=== PATIENT | female | born 1940 | race Caucasian/White ===

== ENCOUNTER 2018-11-15 05:47 | Emergency (ER) | payer OTHER ==
[~2018-11-15] VITALS: Ht 167.6 cm; Wt 83.9 kg
[~2018-11-15 05:47] MED LIST: ACYC800 PO; ASPI81EC PO; Antivert25 MG PO; BENAML10/5; BENAML20/5 PO; BENZOPRIL; CEPH500 PO; CIPR500 PO; CLOP75 PO; Cephalexin500 MG PO; DIGO.25 PO; EZET10 PO; HYDACE5 PO; HYDR1TAB94 PO; ISOMON30 PO; MECL25 PO; METO25ER PO; METO50 PO; METOPROLOL SUCCINATE; Macrobid 100 M100 MG PO; Norco 5-325 Ta1 EACH PO; ONDA4 PO; ONDA4ODT MM; OXYACE5T PO; PRAHYD1AE TOP; PROM25 PO; RXONDA4ODT MM; SERT100 PO; SERT50 PO; TAMS.4ER PO; Valium5 MG PO; WARF5 PO; WARF6 PO; Zofran8 MG PO; [UNRECOGNIZED DRUG - OTHER]; [UNRECOGNIZED DRUG - REMARK]; [UNRECOGNIZED DRUG - REMARK]
[2018-11-15 06:15] LABS: BASOPHILS ABSOLUTE AUTO 0.02 K/mm3 (0.00-0.23); BASOPHILS PERCENT AUTO 0 % (0-2); EOSINOPHILS ABSOLUTE AUTO 0.01 K/mm3 (0.00-0.68); EOSINOPHILS PERCENT AUTO 0 % (0-6); Hemoglobin 14.1 g/dL (11.5-16.0); IMMATURE GRAN ABSOLUTE AUTO 0.06 K/mm3 (0.00-0.10); IMMATURE GRAN PERCENT AUTO 1 % (0-1); LYMPHOCYTES ABSOLUTE AUTO 0.78 K/mm3 (0.84-5.20); LYMPHOCYTES PERCENT AUTO 8 % (21-46); MONOCYTES ABSOLUTE AUTO 0.51 K/mm3 (0.16-1.47); MONOCYTES PERCENT AUTO 5 % (4-13); Mean Corpuscular HGB 30.1 pg (26.0-34.0); Mean Corpuscular HGB Conc 33.6 g/dL (31.5-36.5); Mean Corpuscular Volume 90 fL (80-100); Mean Platelet Volume 9.5 fL (9.1-12.4); NEUTROPHILS ABSOLUTE AUTO 8.34 K/mm3 (1.96-9.15); NEUTROPHILS PERCENT AUTO 86 % (41-73); Platelet Count 219 K/mm3 (150-400); RDW Coefficient Variation 13.7 % (11.7-14.2); RDW Standard Deviation 44.1 fL (35.1-46.3); Red Blood Cell Count 4.69 M/mm3 (3.80-5.20); White Blood Cell Count 9.72 K/mm3 (4.00-11.30)
[2018-11-15 06:30] LABS: International Normalized Ratio 2.51; Prothrombin Time Results 24.5 Sec (9.7-11.5)
[2018-11-15 06:39] LABS: Alanine Aminotransfer (ALT/SGP 18 U/L (12-78); Albumin, Blood 3.4 g/dL (3.4-5.0); Albumin/Globulin Ratio 0.8 (0.8-1.8); Alk Phos 81 U/L (50-136); Anion Gap 8 mmol/L (6-16); Aspartate Aminotrans (AST/SGOT 16 U/L (12-37); Bilirubin, Total 0.5 mg/dL (0.1-1.0); Blood Urea Nitrogen 17 mg/dL (8-24); Bun/Creatinine Ratio 25.3 (12.0-20.0); CO2, Blood 26 mmol/L (21-32); Calcium, Blood 9.1 mg/dL (8.5-10.1); Chloride, Blood 107 mmol/L (98-108); Creatinine, Blood 0.67 mg/dL (0.40-1.00); Globulin, Blood 4.3 g/dL (2.2-4.0); Glomerular Filtration Rate >60 (60-); Glucose, Blood 140 mg/dL (70-99); Potassium, Blood 3.7 mmol/L (3.5-5.5); Sodium, Blood 141 mmol/L (136-145); Total Protein, Blood 7.7 g/dL (6.4-8.2)
[2018-11-15 07:34] LABS: Source, Urine Clean Catch
[2018-11-15 07:37] LABS: Appearance, Urine Clear (Clear); Bilirubin, Urine Neg (Neg); Blood, Urine 5+ (Neg); Color, Urine Yellow (P-Yellow); Glucose Qualitative, Urine Neg (Neg); Ketones, Urine Neg (Neg); Leukocyte Esterase, Urine Neg (Neg); Nitrite, Urine Neg (Neg); Protein, Urine 2+ (Neg); Specific Gravity, Urine 1.025 (1.003-1.022); Urobilinogen, Urine NORM (Normal)
[2018-11-15 07:55] LABS: White Blood Cells, Urine 0-2 /hpf (0-5)
[2018-11-15 07:56] LABS: Red Blood Cells, Urine 25-50 /hpf (0-2); Squamous Epithelial Cells Rare /hpf (Few)
[2018-11-15 07:57] LABS: Bacteria Rare /hpf; Mucus Mod (0-Heavy)
[2018-11-15] MEDS ORDERED: HYDR1TAB94 PO (08:07)
== END 2018-11-15 08:21 | disposition home or self-care (01) ==
LOC: ER 05:47
PROVIDERS: Emergency Medicine
DX: N13.2 Hydronephrosis with renal and ureteral calculous obstruction (principal); Z88.5 Allergy status to narcotic agent; Z79.82 Long term (current) use of aspirin; Z79.899 Other long term (current) drug therapy; Z79.01 Long term (current) use of anticoagulants; I10 Essential (primary) hypertension; I48.91 Unspecified atrial fibrillation; Z87.891 Personal history of nicotine dependence
CPT/HCPCS: 51701; 74176; 80053; 81001; 83690; 85025; 85610; 96361-59; 96374-59; 96375-59; 99284-25; J1170; J2405; J7030

== ENCOUNTER → 2019-04-08 | Outpatient (CLI) | payer OTHER | END | disposition home or self-care (01) | LOC: PLD 14:02 → LAB SHORT 14:02 | DX: D48.5 Neoplasm of uncertain behavior of skin (principal) | CPT/HCPCS: 88305 ==